=== PATIENT | female | born 1950 | race Caucasian/White ===

== ENCOUNTER → 2017-07-19 | Outpatient (CLI) | payer MEDICARE ==
--- NOTE | 2017-07-20 09:40 | MM ---
Reason for exam: screening (asymptomatic). Last mammogram was performed 1 year and 1 month ago. History: Patient is postmenopausal. Took estrogen for 1 year. Physical Findings: A clinical breast exam by your physician is recommended on an annual basis and results should be correlated with mammographic findings. MG 3D Screening Mammo W/Cad Bilateral CC and MLO view(s) were taken. Prior study comparison: June 08, 2016, bilateral MG 3d screening mammo w/cad. November 20, 2015, left breast MG 3d diag mammo w/cad LT. The breast tissue is heterogeneously dense. This may lower the sensitivity of mammography. There is no discrete abnormality. No significant changes when compared with prior studies. ASSESSMENT: Negative, BI-RAD 1 RECOMMENDATION: Routine screening mammogram of both breasts in 1 year.
== END | disposition home or self-care (01) ==
LOC: RADMAMWWP 12:56
PROVIDERS: ATTEND Family Medicine
DX: Z12.31 Encounter for screening mammogram for malignant neoplasm of breast (principal)
CPT/HCPCS: 77063; G0202

== ENCOUNTER → 2017-09-02 | Outpatient (CLI) | payer MEDICARE ==
[2017-09-02 16:22] LABS: Basophils # (A) 0.1 k/uL (0-0.2); Basophils % (A) 1 %; CH 31.9; CHCM 33.9; Eosinophils # (A) 0.2 k/uL (0-0.7); Eosinophils % (A) 3 %; HCT 45.1 % (34.0-46.0); HDW 2.35; HGB 14.8 gm/dL (11.4-16.0); Luc # (Auto) 0.21; Luc % (Auto) 3; Lymphocytes # (A) 2.1 k/uL (1.0-4.8); Lymphocytes % (A) 30 %; MCH 31.1 pg (25.0-35.0); MCHC 32.9 g/dL (31.0-37.0); MCV 94.4 fL (80.0-100.0); Mean Platelet Volume 7.3; Monocytes # (A) 0.4 k/uL (0-1.0); Monocytes % (A) 6 %; Neutrophils % (A) 57 %; RBC 4.77 m/uL (3.80-5.40); RDW 13.5 % (11.5-15.5); WBC (Perox) 7.33
[2017-09-02 16:38] LABS: ALT 38 U/L (9-52); AST 27 U/L (14-36); Alkaline Phosphatase 93 U/L (38-126); Anion Gap 10 mmol/L; Blood Urea Nitrogen 20 mg/dL (7-17); Calcium 10.1 mg/dL (8.4-10.2); Carbon Dioxide 26 mmol/L (22-30); Chloride 105 mmol/L (98-107); Glucose 88 mg/dL (74-99); Non-African American GFR(MDRD) 55 (>60 ml/min/1.73 sqM); Potassium 4.6 mmol/L (3.5-5.1); Sodium 141 mmol/L (137-145); Total Protein 7.6 g/dL (6.3-8.2)
[2017-09-03 01:15] LABS: Iron Saturation 24.07 (12.00-45.00); Iron(FE) 71 ug/dL (50-170); Total Iron Binding Capacity 295 ug/dL (228-460)
[2017-09-03 01:32] LABS: ANA w/Reflex to Titer NEGATIVE (NEGATIVE)
[2017-09-06 11:55] LABS: HCV Qualitative Result Not detected (Not detected)
== END | disposition home or self-care (01) ==
LOC: LABWHC1 15:47
PROVIDERS: ATTEND Internal Medicine Gastroenterology
DX: R79.89 Other specified abnormal findings of blood chemistry (principal)
CPT/HCPCS: 36415; 80053; 82103; 82390; 82728; 83516; 83540; 83550; 84165; 85025; 86038; 87340; 87522

== ENCOUNTER → 2018-03-21 | Outpatient (CLI) | payer MEDICARE ==
[2018-03-21 10:45] LABS: Calcium 9.9 mg/dL (8.4-10.2); Potassium 4.7 mmol/L (3.5-5.1); Total Bilirubin 1.2 mg/dL (0.2-1.3); Total Protein 6.7 g/dL (6.3-8.2)
== END ==
LOC: LABWHC1 09:45
PROVIDERS: ATTEND Internal Medicine Gastroenterology
DX: K76.0 Fatty (change of) liver, not elsewhere classified (principal)
CPT/HCPCS: 36415; 80053

== ENCOUNTER → 2018-09-15 | Outpatient (CLI) | payer MEDICARE ==
--- NOTE | 2018-09-19 08:42 | MM ---
Reason for exam: screening (asymptomatic). Last mammogram was performed 1 year and 2 months ago. History: Patient is postmenopausal. Took estrogen for 1 year. Physical Findings: A clinical breast exam by your physician is recommended on an annual basis and results should be correlated with mammographic findings. MG 3D Screening Mammo W/Cad Bilateral CC and MLO view(s) were taken. Prior study comparison: July 19, 2017, bilateral MG 3d screening mammo w/cad. June 08, 2016, bilateral MG 3d screening mammo w/cad. There are scattered fibroglandular densities. No suspicious abnormality on the left breast. Right medial asymmetry 9.3cm from nipple 3D CC 26/50. ASSESSMENT: Incomplete: need additional imaging evaluation, BI-RAD 0 RECOMMENDATION: Special view mammogram of the right breast. If lesion persists on supplemental views, image directed ultrasound is recommended. [facility] will attempt to contact patient to return for supplemental views and ultrasound if indicated.
== END | disposition home or self-care (01) ==
LOC: RADMAMWWP 12:22
PROVIDERS: ATTEND Family Medicine
DX: Z12.31 Encounter for screening mammogram for malignant neoplasm of breast (principal)
CPT/HCPCS: 77063; 77067

== ENCOUNTER → 2018-09-21 | Outpatient (CLI) | payer MEDICARE ==
--- NOTE | 2018-09-22 07:17 | MM ---
Reason for exam: additional evaluation requested from abnormal screening. Last mammogram was performed less than 1 month ago. History: Patient is postmenopausal. Took estrogen for 1 year. Physical Findings: Nurse did not find any significant physical abnormalities on exam. MG 3D Work Up W/Cad RT Spot compression CC and LM view(s) were taken of the right breast. Prior study comparison: September 15, 2018, bilateral MG 3d screening mammo w/cad. July 19, 2017, bilateral MG 3d screening mammo w/cad. There are scattered fibroglandular densities. There is no discrete abnormality. These results were verbally communicated with the patient and result sheet given to the patient on 09/21/18. ASSESSMENT: Probably benign, BI-RAD 3 RECOMMENDATION: Follow-up diagnostic mammogram of the right breast in 6 months.
== END | disposition home or self-care (01) ==
LOC: RADMAMWWP 14:48
PROVIDERS: ATTEND Family Medicine
DX: R92.8 Other abnormal and inconclusive findings on diagnostic imaging of breast (principal)
CPT/HCPCS: 77065; G0279; 77061

== ENCOUNTER → 2019-05-03 | Outpatient (CLI) | payer MEDICARE ==
--- NOTE | 2019-05-03 13:11 | MM ---
Reason for exam: follow-up at short interval from prior study. Last mammogram was performed 7 months ago. History: Patient is postmenopausal. Took estrogen for 1 year. Physical Findings: Nurse did not find any significant physical abnormalities on exam. MG 3D Diag Mammo W/Cad RT CC and MLO view(s) were taken of the right breast. Prior study comparison: September 21, 2018, right breast MG 3d work up w/cad RT. September 15, 2018, bilateral MG 3d screening mammo w/cad. The breast tissue is heterogeneously dense. This may lower the sensitivity of mammography. Persistent medial CC distortion without MLO correlate. These results were verbally communicated with the patient and result sheet given to the patient on 05/03/19. ASSESSMENT: Incomplete: need additional imaging evaluation, BI-RAD 0 RECOMMENDATION: Ultrasound of the right breast. (medial, attention 9cm from the nipple)
--- NOTE | 2019-05-03 13:14 | USB ---
Reason for exam: additional evaluation requested from abnormal screening. History: Patient is postmenopausal. Took estrogen for 1 year. US Breast Limited RT Right limited breast ultrasound including focal area of concern, retroareolar and axilla demonstrates no cystic or solid lesion seen. No suspicious finding. These results were verbally communicated with the patient and result sheet given to the patient on 05/03/19. ASSESSMENT: Probably benign, BI-RAD 3 RECOMMENDATION: Follow-up diagnostic mammogram of both breasts in 6 months.
== END | disposition home or self-care (01) ==
LOC: RADMAMWWP 10:42
PROVIDERS: ATTEND Family Medicine
DX: R92.8 Other abnormal and inconclusive findings on diagnostic imaging of breast (principal)
CPT/HCPCS: 77065; 76642; G0279; 77061

== ENCOUNTER → 2019-11-24 | Outpatient (CLI) | payer MEDICARE ==
--- NOTE | 2019-11-27 07:22 | MM ---
Reason for exam: additional evaluation requested from prior study. Last mammogram was performed 7 months ago. History: Patient is postmenopausal. Took estrogen for 1 year. Physical Findings: Nurse did not find any significant physical abnormalities on exam. MG 3D Diag Mammo W/Cad KURT Bilateral CC and MLO view(s) were taken. Prior study comparison: May 03, 2019, right breast MG 3d diag mammo w/cad RT. September 21, 2018, right breast MG 3d work up w/cad RT. The breast tissue is heterogeneously dense. This may lower the sensitivity of mammography. There is no discrete abnormality. No significant new findings when compared with previous films. These results were verbally communicated with the patient and result sheet given to the patient on 11/24/19. ASSESSMENT: Benign, BI-RAD 2 RECOMMENDATION: Routine screening mammogram of both breasts in 1 year.
== END | disposition home or self-care (01) ==
LOC: RADMAMWWP 15:03
PROVIDERS: ATTEND Family Medicine
DX: R92.2 Inconclusive mammogram (principal)
CPT/HCPCS: 77066; G0279; 77062

== ENCOUNTER → 2021-01-15 | Outpatient (CLI) | payer MEDICARE ==
--- NOTE | 2021-01-16 12:14 | MM ---
Reason for exam: screening (asymptomatic). Last mammogram was performed 1 year and 2 months ago. History: Patient is postmenopausal. Took estrogen for 1 year. Physical Findings: A clinical breast exam by your physician is recommended on an annual basis and results should be correlated with mammographic findings. MG 3D Screening Mammo W/Cad Bilateral CC and MLO view(s) were taken. Prior study comparison: November 24, 2019, bilateral MG 3d diag mammo w/cad KURT. May 03, 2019, right breast MG 3d diag mammo w/cad RT. The breast tissue is heterogeneously dense. This may lower the sensitivity of mammography. There is no discrete abnormality. No significant changes when compared with prior studies. ASSESSMENT: Negative, BI-RAD 1 RECOMMENDATION: Routine screening mammogram of both breasts in 1 year.
== END | disposition home or self-care (01) ==
LOC: RADMAMWWP 10:17
PROVIDERS: ATTEND Family Medicine
DX: Z12.31 Encounter for screening mammogram for malignant neoplasm of breast (principal)
CPT/HCPCS: 77063; 77067

== ENCOUNTER → 2022-06-10 | Outpatient (CLI) | payer MEDICARE ==
--- NOTE | 2022-06-10 15:15 | BD ---
EXAMINATION TYPE: Axial Bone Density DATE OF EXAM: 06/10/2022 COMPARISON: NONE CLINICAL HISTORY: 71 years year old Female. ICD-10 CODE: Z12.31 SCREENING MAMMO Height: 5 FT 1 IN Weight: 167 FRAX RISK QUESTIONS: Alcohol (3 or more units per day): NO Family History (Parent hip fracture): NO Glucocorticoids (More than 3mos): NO (Ex: prednisone, prednisolone, methylprednisolone, dexamethasone, and hydrocortisone). History of Fracture in Adulthood: YES Secondary Osteoporosis: 1. Type 1 Diabetes: NO 2. Hyperthyroidism: NO 3. Menopause before 45: NO 4. Malnutrition: NO 5. Chronic liver disease: NO Rheumatoid Arthritis: NO Current Tobacco Use: NO RISK FACTORS HISTORY OF: Surgery to Spine/Hip(right/left)/Wrist (right/left): NO Family History of Osteoporosis: NO Active: YES Diet low in dairy products/other sources of calcium: NO Postmenopausal woman: YES Take estrogen and/or progesterone medications: BRIEFLY Lost more than 2 inches in height since high school: YES Frequent falls: NO Poor Health: GOOD Hyperparathyroidism: NO Adrenal Insufficiency: NO MEDICATIONS: Thyroid Medications: YES Which medication: SYNTHROID How Lon YEARS Additional Medications: SYNTHROID, ATORVASTATIN,HYZAR,MOBIC ,BABY ASPIRIN,NORVASC Additional History: EXAM MEASUREMENTS: Bone mineral densitometry was performed using the [employer] System. Bone mineral density as measured about the Lumbar spine is: ----- L1-L4(G/cm2): 1.160 T Score Values are as follows: ----- L1: 0.1 ----- L2: -0.6 ----- L3: 0.3 ----- L4: -0.7 ----- L1-L4: -0.2 BASELINE Bone mineral density about the R hip (g/cm2): 0.752 Bone mineral density about the L hip (g/cm2): 0.828 T Score values are as follows: -----R Neck: -2.1 -----L Neck: -1.5 -----R Total: -2.1 -----L Total: -1.2 BASELINE FRAX%s: The graph provided illustrates a 18.9 % chance for a major osteoporotic fx and a 3.9 % chance for the hips probability for fx in 10 years time. IMPRESSION: Osteopenia (T Score between -2.5 and -1). There is slightly increased risk of fracture and the patient may be considered for treatment. Re-Screen 2-5 years. NOTE: T-SCORE=SD OF THE YOUNG ADULT MEAN.
--- NOTE | 2022-06-11 08:00 | MM ---
Reason for Exam: Screening (asymptomatic). Last mammogram was performed 1 year(s) and 5 month(s) ago. Patient History: Menarche at age 12. First Full-Term at age 19. Left ovary removed at age 52. Right ovary removed at age 52. Hysterectomy at age 52. Postmenopausal. Patient used Estrogen for 1 year. Risk Values: Mackenzie 5 year model risk: 1.3%. NCI Lifetime model risk: 3.5%. Prior Study Comparison: 05/03/2019 Right Diagnostic Mammogram, [facility]. 11/24/2019 Bilateral Diagnostic Mammogram, [facility]. 01/15/2021 Bilateral Screening Mammogram, [facility]. Tissue Density: There are scattered fibroglandular densities. Findings: Analyzed By CAD. There is no suspicious group of microcalcifications or new suspicious mass in either breast. Overall Assessment: Benign, BI-RAD 2 Management: Screening Mammogram of both breasts in 1 year. A clinical breast exam by your physician is recommended on an annual basis and results should be correlated with mammographic findings. Electronically signed and approved by: Nino Owens M.D. Radiologis
== END | disposition home or self-care (01) ==
LOC: RADBDWWP 10:19
PROVIDERS: ATTEND Family Medicine
DX: Z12.31 Encounter for screening mammogram for malignant neoplasm of breast (principal); Z78.0 Asymptomatic menopausal state; M85.89 Other specified disorders of bone density and structure, multiple sites
CPT/HCPCS: 77063; 77067; 77080

== ENCOUNTER → 2023-08-16 | Outpatient (CLI) | payer MEDICARE ==
--- NOTE | 2023-08-16 13:29 | MM ---
Reason for Exam: Screening (asymptomatic). Last mammogram was performed 1 year(s) and 2 month(s) ago. Patient History: Menarche at age 12. First Full-Term at age 19. Left ovary removed at age 52. Right ovary removed at age 52. Hysterectomy at age 52. Postmenopausal. Patient used Estrogen for 1 year. Risk Values: Mackenzie 5 year model risk: 1.3%. NCI Lifetime model risk: 3.3%. Prior Study Comparison: 11/24/2019 Bilateral Diagnostic Mammogram, [facility]. 01/15/2021 Bilateral Screening Mammogram, [facility]. 06/10/2022 Bilateral MG 3D screening mammo w/cad, [facility]. Tissue Density: There are scattered fibroglandular densities. Findings: Analyzed By CAD. There is no suspicious group of microcalcifications or new suspicious mass. Overall Assessment: Negative, BI-RAD 1 Management: Screening Mammogram of both breasts in [address] [facility] will attempt to contact patient to return for supplemental views and ultrasound if indicated. Patient should continue monthly self-breast exams. A clinical breast exam by your physician is recommended on an annual basis. This exam should not preclude additional follow-up of suspicious palpable abnormalities. Note on Mackenzie scores and lifetime risk: 1. A Mackenzie score greater than 3% is considered moderate risk. If this is the case, consider specialist referral to assess eligibility for a risk reducing agent. 2. If overall lifetime risk for the development of breast cancer is 20% or higher, the patient may qualify for future screening with alternating mammogram and breast MRI. Electronically signed and approved by: Zion Perales DO
== END | disposition home or self-care (01) ==
LOC: RADMAMWWP 10:54
PROVIDERS: ATTEND Family Medicine
DX: Z12.31 Encounter for screening mammogram for malignant neoplasm of breast (principal); Z78.0 Asymptomatic menopausal state
CPT/HCPCS: 77063; 77067

== ENCOUNTER → 2024-02-14 | Outpatient (CLI) | payer MEDICARE ==
--- NOTE | 2024-02-15 12:00 | CT ---
EXAMINATION TYPE: CT right knee - MANUEL Protocol CT DLP: 817 mGycm, Automated exposure control for dose reduction was used. DATE OF EXAM: 02/14/2024 11:46 AM COMPARISON: . None CLINICAL INDICATION:Female, 73 [place] [id number]; PHH, knee pain, osteoarthritis, MANUEL knee. TECHNIQUE: Axial images were obtained of the CT right knee - MANUEL Protocol, Additional coronal and sa gittal reformatted images and soft tissue and bone window were obtained for review. 3-D reconstructio n was created on a separate workstation. Contrast used: mL of , (None if empty) Oral contrast used: (None if empty) FINDINGS: There is no evidence of fracture, subluxation, or dislocation. No significant soft tissue swelling or joint effusion is identified. No focal muscular atrophy or edema is identified. No radiop aque foreign body identified. IMPRESSION: No evidence of fracture.
== END | disposition home or self-care (01) ==
LOC: RADCTMAIN 10:21
PROVIDERS: ATTEND Orthopaedic Surgery
DX: M17.12 Unilateral primary osteoarthritis, left knee (principal); M17.11 Unilateral primary osteoarthritis, right knee; M21.061 Valgus deformity, not elsewhere classified, right knee; M21.162 Varus deformity, not elsewhere classified, left knee; M25.561 Pain in right knee

== ENCOUNTER → 2024-02-14 | Outpatient (CLI) | payer MEDICARE ==
[2024-02-14 11:02] LABS: INR 0.9 (<1.2); Prothrombin Time 10.3 sec (10.0-12.5)
[2024-02-14 16:07] LABS: HCT 44.2 % (37.2-46.3); HGB 15.3 g/dL (12.0-15.0); MCH 31.2 pg (27.0-32.0); MCHC 34.6 g/dL (32.0-37.0); Mean Platelet Volume 9.6 FL (9.5-12.2); NRBC Per 100 WBC 0 X 10*3/uL (0.00-0.01); Platelet Count 372 X 10*3/uL (140-440); RBC 4.91 X 10*6/uL (4.10-5.20); RDW 12.6 % (11.5-14.5); WBC 7.45 X 10*3/uL (4.50-10.00)
[2024-02-14 16:09] LABS: ALT 18 U/L (8-44); AST 25 U/L (13-35); Albumin 4.6 g/dL (3.8-4.9); Albumin/Globulin Ratio 1.59 Ratio (1.60-3.17); Alkaline Phosphatase 81 U/L (41-126); BUN/Creat Ratio 13.18 Ratio (12.00-20.00); Blood Urea Nitrogen 14.5 mg/dL (9.0-27.0); Calcium 10.1 mg/dL (8.7-10.3); Carbon Dioxide 23.6 mmol/L (21.6-31.8); Chloride 99 mmol/L (96-109); Globulin 2.9 g/dL (1.6-3.3); Glucose 99 mg/dL (70-110); Sodium 135 mmol/L (135-145); Total Bilirubin 1.4 mg/dL (0.3-1.2); Total Protein 7.5 g/dL (6.2-8.2)
== END | disposition home or self-care (01) ==
LOC: LABPAT 09:55
PROVIDERS: ATTEND Orthopaedic Surgery
DX: Z01.812 Encounter for preprocedural laboratory examination (principal); Z22.322 Carrier or suspected carrier of Methicillin resistant Staphylococcus aureus; M17.11 Unilateral primary osteoarthritis, right knee
CPT/HCPCS: 36415; 80053; 83036; 85027; 85610; 85730; 93005

== ENCOUNTER → 2024-03-02 | Outpatient (CLI) | payer MEDICARE | END | disposition home or self-care (01) | LOC: LABPAT 11:08 | PROVIDERS: ATTEND Orthopaedic Surgery | DX: Z01.812 Encounter for preprocedural laboratory examination (principal); M17.11 Unilateral primary osteoarthritis, right knee; Z22.322 Carrier or suspected carrier of Methicillin resistant Staphylococcus aureus | CPT/HCPCS: 87070 ==

== ENCOUNTER 2024-03-10 05:38 | Day surgery (SDC) | payer MEDICARE ==
[2024-03-10] MEDS ORDERED: TRANEXAMIC 1,000 MG/100ML-NACL 1,000 MG in SALINE 1 100ML.BAG IVPB PRN (06:00)
[2024-03-10] MEDS: ACETAMINOPHEN TAB 500 MG TAB PO PRN (06:42)
[2024-03-10] MEDS: oxyCODONE ER 10 MG TAB.ER.12H PO PRN (06:42)
[2024-03-10] MEDS: DOCUSATE 100 MG CAP PO PRN (06:42)
[2024-03-10] MEDS: FAMOTIDINE 20 MG/2 ML VIAL IVP PRN (06:44)
[2024-03-10] MEDS: DEXAMETHASONE SOD PHOSPHATE 10 MG/ML 1 ML VIAL IV PRN (06:45)
[2024-03-10] MEDS: ONDANSETRON 4 MG/2 ML VIAL IVP PRN (06:46)
[2024-03-10] MEDS: KETOROLAC 15 MG/ML 1 ML VIAL IVP PRN (06:46)
[2024-03-10] MEDS: LACTATED RINGERS 1,000 ML IV ONE (06:52)
[2024-03-10] MEDS: MIDAZOLAM 2 MG/2 ML VIAL IVP ONE (07:01)
[2024-03-10] MEDS: TRANEXAMIC 1,000 MG/100ML-NACL 1,000 MG in SALINE 1 100ML.BAG IV PRN (07:41)
[2024-03-10] MEDS ORDERED: HYDROmorphone 0.5 MG/0.5 ML SYRINGE IVP PRN ×3 (07:57)
[2024-03-10] MEDS ORDERED: bisacodyL 10 MG SUPP RECTAL PRN (07:57)
[2024-03-10] MEDS ORDERED: traMADol 50 MG TAB PO PRN (07:57)
[2024-03-10] MEDS ORDERED: NA PHOS,M-B/NA PHOS,DI-BA 133 ML ENEMA RECTAL PRN (07:57)
[2024-03-10] MEDS ORDERED: MAGNESIUM HYDROXIDE 2,400 MG/30 ML CUP PO PRN (07:57)
[2024-03-10] MEDS ORDERED: ACETAMINOPHEN TAB 325 MG TAB PO PRN (07:57)
[2024-03-10] MEDS ORDERED: NALOXONE 0.4 MG/ML 1 ML VIAL IV PRN (07:57)
--- NOTE | 2024-03-10 07:57 | P.ANPRN ---
Procedure Note - Anesthesia - Nerve Block Performed Right [place] Single Time Out Performed: Yes Date of Procedure: 03/10/24 Procedure Start Time: 07:01 Procedure Stop Time: 07:05 Location of Patient: PreOp Indication: Acute Post-Operative Pain, Analgesia, Requested by Surgeon Sedation Type: Sedate with meaningful contact maintained Preparation: Sterile Prep Position: Left Lateral Catheter: None Needle Types: Pajunk Needle Gauge: 21 Ultrasound used to visualize needle placement: Yes Ultrasound used to observe medication spread: Yes Injectate: 0.5% Ropivacaine (see comment for volume) (Ropiv 25ml + decadron 4mg) Blood Aspirated: No Pain Paresthesia on Injection Noted: No Resistance on Injection: Normal Image Stored and Saved: Yes Events: Uneventful and Well Tolerated
--- NOTE | 2024-03-10 07:59 | P.ANPRN ---
Procedure Note - Anesthesia - Nerve Block Performed Right Adductor Canal Single Time Out Performed: Yes Date of Procedure: 03/10/24 Procedure Start Time: 07:06 Procedure Stop Time: 07:11 Location of Patient: PreOp Indication: Acute Post-Operative Pain, Analgesia, Requested by Surgeon Sedation Type: Sedate with meaningful contact maintained Preparation: Sterile Prep Position: Supine Needle Types: Pajunk Needle Gauge: 21 Ultrasound used to visualize needle placement: Yes Ultrasound used to observe medication spread: Yes Injectate: 0.5% Ropivacaine (see comment for volume) (Ropiv 20ml + decadron 4mg) Blood Aspirated: No Pain Paresthesia on Injection Noted: No Resistance on Injection: Normal Image Stored and Saved: Yes Events: Uneventful and Well Tolerated
[2024-03-10] MEDS ORDERED: HYDROcodone/APAP 7.5-325MG 1 EACH TAB PO PRN (08:00)
[2024-03-10] MEDS: ROPIVACAINE/EPI/CLONIDINE/KET 50 ML SYRINGE MISCELLANE PRN (08:20)
[2024-03-10] MEDS: LACTATED RINGERS 1,000 ML IV SCH (08:45)
--- NOTE | 2024-03-10 10:03 | P.OP ---
Date of Procedure: 03/10/24 Preoperative Diagnosis: severe right knee arthritis, valgus deformity Postoperative Diagnosis: same Procedure(s) Performed: 1. Right total knee arthroplasty 2. Computer assisted musculoskeletal navigation using CT/MRI images Implants: 1. [place] Triathlon CR Femur Size #3 2. [place] Triathlon [place] Tibial Base Size #2 with 12x50 tibial stem 3. Zach Triathlon CS poly Size #11 4. Zach Triathlon all poly patella, Size #29 Anesthesia: MARLEY, regional Surgeon: Joe Pedersen Fire Equipment Repairer Inspector #1: Emeka Gonzalez Estimated Blood Loss (ml): 100 IV fluids (ml): 1,000 Pathology: none sent Condition: stable Disposition: PACU Indications for Procedure: I met with the patient preoperatively in the office setting and discussed treatment of their symptomatic knee arthritis. They failed a long course of nonsurgical treatment and elected to proceed with an elective total knee replacement. I discussed the potential risks and complications at length and gave them ample time to ask questions. Risks discussed included: risks from anesthesia, superficial site surgical infection, acute and/or chronic periprosthetic joint infection, delayed wound healing, drainage, wound necrosis, instability, stiffness, stiffness requiring manipulation and/or revision surgery, damage to local blood vessels or nerves, aseptic loosening of the implants, extensor mechanism issues including disruption, patellar maltracking, avascular necrosis etc., continued or worsened knee pain, generalized dissatisfaction with surgical outcome, need for revision surgery, an inability to regain preinjury level of function, DVT, PE, other medical complications, and possibly loss of life or limb. The patient voiced their understanding that while these are the most common complications other less common complications are possible. They provided both their verbal and written consent to go forward with surgery. Operative Findings: upon making the arthrotomy there were severe arthritic changes in all 3 compartments of the knee. After registering the knee with the Grovo robot the patient's pre-existing deformity and extension was 3 of valgus. Her deformity was passively correctable without any soft tissue release to 1-degree of valgus. Using implant manipulation and the goal robotic software the implants were optimally positioned to balance the knee. With the trial implants in the pa tient had full extension and 1.5 of valgus without any lateral release. Description of Procedure: The patient was identified in preoperative holding and the correct operative extremity was verified and marked with a marker. I reviewed the consent form with the patient at length. All of their questions were answered. The patient was given a block by anesthesia. They were then brought back to the operating room. They were transferred onto the operating room table where a general anesthetic, preoperative antibiotics, and tranexamic acid were administered by anesthesia. A tourniquet was applied to the proximal aspect of the operative extremity. The contralateral extremity was padded under the heel and secured to the operating room table with a nonsterile blue towel and tape. The ipsilateral arm was carefully draped across the patient's chest and secured with a pillow and foam. A post was applied over the lateral aspect of the ipsilateral thigh and a bolster was placed under the ipsilateral foot. I verified that the operative extremity was stable and the knee was flexed to 90. The operative extremity was then placed in a leg rivera, nonsterile drapes were applied, and the extremity was prepped and draped sterilely in the standard sterile fashion. Prior to starting surgery timeout was performed identifying the correct patient, operative extremity, and procedure. The leg was then elevated, exsanguinated with an Esmarch bandage, and the tourniquet was inflated. An anterior midline incision was made sharply with a scalpel. Once I had dissec mariama deep to the superficial fascial layer medial and lateral flaps were elevated. A medial parapatellar arthrotomy was created. Upon opening the knee joint there were diffuse arthritic changes in all 3 compartments. The anterior horn of the medial meniscus were sharply released and a medial release was performed around the posterior medial corner of the knee to facilitate retractor placement. The fat pad was excised with electrocautery. The patella was found to be severely arthritic and a provisional cut was made with a sagittal saw to facilitate mobilization of the extensor mechanism during the procedure. Remnants of the ACL and PCL were then excised from the notch. 4 mm pins were then placed within the incision in the medial distal femur and proximal tibia. Arrays were applied to the pins and I verified they were completely tightened. The knee was then registered with the Grovo robot and manipulations in implant position were made to balance the knee and opitmize implant position. Using the Grovo robotic saw all cuts were made in accordance with our plan. After all bony fragments had been removed the cuts were verified with the planar probe. The tibia was then subluxed forward and sized. The knee was brought into flexion and a lamina package winder was placed to allow removal of the meniscal remnants both medially and laterally as well as posterior osteophytes. Local anesthetic was then infiltrated around the joint capsule. Trial implants were then placed within the knee. Range of motion and collateral ligament tension was then evaluated. Adjustments in implant size and position were then made accordingly. Once the knee was felt to be appropriately balanced the Charles pins were removed. The patella was then recut, sized, and punched. A trial patellar button was then placed. With the trial components in place, the patella tracked midline. The femur was then drilled and the trial component removed. The trial tibial component was then appropriately rotated, pinned, and prepared for the keel. All trial components were then removed from the knee. The knee was thoroughly irrigated with pulsatile lavage. Cement was prepared via vacuum mixing in a bowl on the back table. I then hand pressurized cement into the femur and tibia and placed the implants beginning with the tibial base tray and poly liner, femoral component, and finally the patellar button. All extruded cement was removed including from the pin sites. Once the cement had hardened the knee was evaluated one final time with the final polyethylene liner in place. The knee had full extension and flexion and felt stable to varus and valgus stress throughout the arc of motion. The tourniquet was released and with the tourniquet down the patella tracked midline. All bleeders were controlled with electrocautery. The knee was then soaked for 3 minutes with a dilute Betadine soak. The knee was thoroughly irrigated using 3 L of sterile saline and pulsatile lavage. The extensor mechanism was then reapproximated using pop off Vicryl sutures followed by a running barbed suture. The knee was then closed in layers with a 0 strata fix for the deep fascial layer, 2-0 strata fix for the superficial subcutaneous layer and Monocryl and Steri-Strips for the skin. A sterile dressing was applied. I verified that all instrument, sponge, and sharp counts were correct. The patient was then transferred off the operating room table, extubated, and brought to recovery having tolerated the procedure well. Emeka Gonzalez PA-C was required as a skilled periodicals library assistant due to the complexity of the surgery for patient positioning, draping, retraction, closure and application of dressing. PLAN: The patient can weight-bear as tolerated on the operative extremity. DVT prophylaxis with aspirin 81 mg twice a day based on preoperative risk stratification. Internal medicine for perioperative medical management. 2 doses of post-operative antibiotics. Physical therapy for gait training. Follow-up in the office in 2 weeks for wound check and x-rays of the knee including an AP and lateral.
--- NOTE | 2024-03-10 11:25 | XR ---
EXAMINATION TYPE: XR knee limited RT DATE OF EXAM: 03/10/2024 COMPARISON: NONE TECHNIQUE: Two views submitted HISTORY: Post op FINDINGS: There is a prosthetic knee in near anatomic alignment. There is soft tissue edema and soft tissue e mphysema. Small cyst versus IMPRESSION: 1. Postoperative change. Appears in near-anatomic alignment
[2024-03-10] MEDS: CALCIUM CARBONATE 500 MG CHEWABLE PO PRN (16:39)
[2024-03-10] MEDS: SENNOSIDES-DOCUSATE SODIUM 1 EACH TAB PO SCH (20:19)
[2024-03-10] MEDS: ASPIRIN 81 MG PO SCH (20:20)
[2024-03-10] MEDS: ATORVASTATIN 40 MG TAB PO SCH (20:20)
[2024-03-10] MEDS: amLODIPine 10 MG TAB PO SCH (20:20)
[2024-03-10] MEDS: CHLORHEXIDINE GLUCONATE 15 ML CUP MUCOUS MEM PRN (20:58)
--- NOTE | 2024-03-10 23:07 | P.CONS ---
History of Present Illness - Reason for Consult Consult date: 03/10/24 Medical management - Chief Complaint Right total knee arthroplasty - History of Present Illness Patient is a 73-year-old female with a past medical history of hypertension, hypothyroidism, hyperlipidemia, asthma, GERD and osteoarthritis was admitted to hospital for elective right total knee arthroplasty. The patient is status post right total knee arthroplasty, computer-assisted musculoskeletal navigation using CT/MRI images. Patient is transferred to medical floor. Currently still drowsy. Complains of nausea. No episodes of vomiting. No fever no chills. Denies any chest pain or shortness of breath. No cough or sputum production. No headache or dizziness. Laboratory data is not available currently. Blood pressure is 108/53 pulse 61 respiration 17 pulse ox 90% on 2 L oxygen via nasal cannula. Medicine service was consulted for medical management. Review of Systems Constitutional: Patient denies any fever or chills . No generalized weakness or weight loss. Abdomen: Patient complains of nausea. No episodes of vomiting. No diarrhea or abdominal pain. Cardiovascular: Patient denies any chest pain or short of breath no palpitations. Respiratory: patient denied any cough is from production. No shortness of breath Neurologic: Patient denied any numbness or tingling headache. Musculoskeletal: Patient denies any complaints of joint swelling or deformity. Skin: Negative Psychiatric: Negative Endocrine: No heat or cold intolerance. No recent weight gain. Genitourinary: No dysuria or hematuria. All other 14 point ROS negative except the above Past Medical History Past Medical History: Asthma, GERD/Reflux, Hyperlipidemia, Hypertension, Osteoarthritis (OA), Thyroid Disorder Additional Past Medical History / Comment(s): swelling right ankle, osteoporosis History of Any Multi-Drug Resistant Organisms: None Reported Past Surgical History: Hysterectomy, Tonsillectomy Additional Past Surgical History / Comment(s): cystocele/rectocele repair Past Anesthesia/Blood Transfusion Reactions: Previous Problems w/ Anesthesia, Postoperative Nausea & Vomiting (PONV) Additional Past Anesthesia/Blood Transfusion Reaction / Comm: woke up during hyst Past Psychological History: No Psychological Hx Reported Smoking Status: Never smoker Past Alcohol Use History: Occasional Past Drug Use History: None Reported - Past Family History Father Family Medical History: Vascular Disorder Medications and Allergies Home Medications Medication Instructions Recorded Confirmed Type Albuterol Inhaler [Ventolin Hfa 1 - 2 puff INHALATION Q6H PRN 03/07/24 03/07/24 History Inhaler] Alendronate Sodium [Fosamax] 70 mg PO APARICIO 03/07/24 03/07/24 History Ascorbic Acid [Vitamin C] 500 mg PO DAILY 03/07/24 03/07/24 History Aspirin 81 mg PO DAILY 03/07/24 03/07/24 History Atorvastatin [Lipitor] 40 mg PO HS 03/07/24 03/07/24 History Cholecalciferol [Vitamin D3 (25 25 mcg PO DAILY 03/07/24 03/07/24 History Mcg = 1000 Iu)] Fish Oil/Dha/Epa [Fish Oil 1,200 1 each PO DAILY 03/07/24 03/07/24 History mg Fish Oil] Furosemide [Lasix] 20 mg PO DAILY PRN 03/07/24 03/07/24 History Levothyroxine Sodium [Synthroid] 88 mcg PO DAILY 03/07/24 03/07/24 History Losartan/Hydrochlorothiazide 1 tab PO DAILY 03/07/24 03/07/24 History [Losartan-Hctz 100-25 mg Tab] Magnesium 200 mg PO DAILY 03/07/24 03/07/24 History Meloxicam [Mobic] 15 mg PO DAILY 03/07/24 03/07/24 History Omeprazole [PriLOSEC] 20 mg PO AC-BRKFST 03/07/24 03/07/24 History Potassium(Unknown Dose) 1 tab PO DAILY PRN 03/07/24 03/07/24 History amLODIPine [Norvasc] 10 mg PO HS 03/07/24 03/07/24 History Aspirin 81 mg PO BID #60 tab 03/10/24 Rx Diclofenac Sodium [Voltaren] 75 mg PO BID #60 tab 03/10/24 Rx Docusate [Colace] 100 mg PO BID #28 capsule 03/10/24 Rx HYDROcodone/APAP 5-325MG [[place] 1 - 2 tab PO Q6HR PRN #32 tab 03/10/24 Rx 5-325] Omeprazole 40 mg PO DAILY #30 cap 03/10/24 Rx Allergies Allergy/AdvReac Type Severity Reaction Status Date / Time No Known Allergies Allergy Verified 03/10/24 06:13 Physical Exam Vitals: Vital Signs Temp Pulse Resp BP BP Pulse Ox 03/10/24 11:25 97.6 F 87 17 116/66 91 L 03/10/24 10:45 62 16 130/60 93 L 03/10/24 10:30 90 16 128/58 94 L 03/10/24 10:15 93 16 126/62 94 L 03/10/24 10:02 97.2 F L 93 16 128/58 98 03/10/24 07:06 88 16 137/65 98 03/10/24 06:29 98.7 F 106 H 16 160/83 96 Intake and Output 03/09/24 03/10/24 03/10/24 22:59 06:59 14:59 Intake Total 300 1550 Output Total 100 Balance 300 1450 Intake: IV 300 1550 Output: Estimated Blood Loss 100 Other: Weight 77.9 kg 77.9 kg PHYSICAL EXAMINATION: Patient is lying in the bed comfortably, no acute distress, awake alert and oriented.. HEENT: Normocephalic. Neck is supple. Pupils reactive. Nostrils clear. Oral cavity is moist. Neck reveals no JVD, carotid bruits, or thyromegaly. CHEST EXAMINATION: Trachea is central. Symmetrical expansion. Bibasilar diminished sounds otherwise lung vazquez clear to auscultation and percussion. CARDIAC: Normal S1, S2 with no gallops. No murmurs ABDOMEN: Soft. Bowel sounds normal. No organomegaly. No abdominal bruits. Extremities: reveal no edema. No clubbing or cyanosis Neurologically awake, alert, oriented x3 with well-coordinated movements. No focal deficits noted Skin: No rash or skin lesions. Psychiatric: Coperative. Nonsuicidal Musculoskeletal: No joint swelling or deformity. Right knee surgical site is bandaged. Assessment and Plan Assessment: Status post right total knee arthroplasty postoperative day 0 Hypertension currently blood pressure is not elevated. Hypothyroidism Osteoarthritis GERD Asthma not on exacerbation Hyperlipidemia Osteoarthritis DVT prophylaxis patient is on aspirin 81 mg twice daily Plan: Patient will be continued on pain management, bowel regimen and encourage incentive spirometry. Patient is on IV hydration with Ringer's lactate at 100 cc at this time. Monitor fluid status closely. Patient is on Norvasc, Lasix and losartan/hydrochlorothiazide at home. Continue with Norvasc and restart her medications as needed. Continue with other home medications as appropriate. Follow-up CBC and BMP tomorrow. Will continue to follow and further recommendations based on clinical course. Thank you kindly for your consult.
[2024-03-11] MEDS: HYDROcodone/APAP 7.5-325MG 1 EACH TAB PO PRN (00:54)
[2024-03-11] MEDS: ONDANSETRON 4 MG/2 ML VIAL IVP PRN (04:49)
[2024-03-11] MEDS: PANTOPRAZOLE 40 MG TABLET PO SCH (06:09)
[2024-03-11] MEDS: LEVOTHYROXINE 88 MCG TAB PO SCH (06:09)
--- NOTE | 2024-03-11 08:35 | P.DS ---
Providers Date of admission: 03/10/2024 Attending physician: Joe Pedersen Consults: 03/10/24 07:57 Consult Physician Routine Consulting Provider: Savana Bui Consult Reason/Comments: post op medical management Do you want consulting provider notified?: Yes Primary care physician: Stated None Hospital Course: The patient is very pleasant 72-year-old female who underwent an uncomplicated right total knee replacement yesterday. Following surgery she was transferred to the orthopedic floor. She received 2 doses postoperative antibiotics. She was transitioned from IV to oral pain medication. She was seen and evaluated by internal medicine. She was started on aspirin for DVT prophylaxis. She worked with physical therapy on postoperative day #1 and did well. I saw the patient p ostoperative day #1 and she was doing well. Her pain was well-controlled. The dressing over her knee was intact. There is mild swelling. Femoral nerve function was intact. She was able to actively dorsiflex and plantarflex her ankles and her toes. She was ultimately cleared for discharge home. Plan - Discharge Summary Discharge Rx Participant: No New Discharge Prescriptions: New Docusate [Colace] 100 mg PO BID #28 capsule Diclofenac Sodium [Voltaren] 75 mg PO BID #60 tab HYDROcodone/APAP 5-325MG [[place] 5-325] 1 - 2 tab PO Q6HR PRN #32 tab PRN Reason: Pain Aspirin 81 mg PO BID #60 tab Omeprazole 40 mg PO DAILY #30 cap No Action Meloxicam [Mobic] 15 mg PO DAILY Losartan/Hydrochlorothiazide [Losartan-Hctz 100-25 mg Tab] 1 tab PO DAILY Ascorbic Acid [Vitamin C] 500 mg PO DAILY amLODIPine [Norvasc] 10 mg PO HS Aspirin 81 mg PO DAILY Alendronate Sodium [Fosamax] 70 mg PO APARICIO Potassium(Unknown Dose) 1 tab PO DAILY PRN PRN Reason: only if takes lasix Magnesium 200 mg PO DAILY Cholecalciferol [Vitamin D3 (25 Mcg = 1000 Iu)] 25 mcg PO DAILY Omeprazole [PriLOSEC] 20 mg PO AC-BRKFST Levothyroxine Sodium [Synthroid] 88 mcg PO DAILY Furosemide [Lasix] 20 mg PO DAILY PRN PRN Reason: Edema Atorvastatin [Lipitor] 40 mg PO HS Albuterol Inhaler [Ventolin Hfa Inhaler] 1 - 2 puff INHALATION Q6H PRN PRN Reason: Shortness Of Breath Fish Oil/Dha/Epa [Fish Oil 1,200 mg Fish Oil] 1 each PO DAILY Discharge Medication List Albuterol Inhaler [Ventolin Hfa Inhaler] 1 - 2 puff INHALATION Q6H PRN 03/07/24 [History] Alendronate Sodium [Fosamax] 70 mg PO APARICIO 03/07/24 [History] Ascorbic Acid [Vitamin C] 500 mg PO DAILY 03/07/24 [History] Aspirin 81 mg PO DAILY 03/07/24 [History] Atorvastatin [Lipitor] 40 mg PO HS 03/07/24 [History] Cholecalciferol [Vitamin D3 (25 Mcg = 1000 Iu)] 25 mcg PO DAILY 03/07/24 [History] Fish Oil/Dha/Epa [Fish Oil 1,200 mg Fish Oil] 1 each PO DAILY 03/07/24 [History] Furosemide [Lasix] 20 mg PO DAILY PRN 03/07/24 [History] Levothyroxine Sodium [Synthroid] 88 mcg PO DAILY 03/07/24 [History] Losartan/Hydrochlorothiazide [Losartan-Hctz 100-25 mg Tab] 1 tab PO DAILY 03/07/24 [History] Magnesium 200 mg PO DAILY 03/07/24 [History] Meloxicam [Mobic] 15 mg PO DAILY 03/07/24 [History] Omeprazole [PriLOSEC] 20 mg PO AC-BRKFST 03/07/24 [History] Potassium(Unknown Dose) 1 tab PO DAILY PRN 03/07/24 [History] amLODIPine [Norvasc] 10 mg PO HS 03/07/24 [History] Aspirin 81 mg PO BID #60 tab 03/10/24 [Rx] Diclofenac Sodium [Voltaren] 75 mg PO BID #60 tab 03/10/24 [Rx] Docusate [Colace] 100 mg PO BID #28 capsule 03/10/24 [Rx] HYDROcodone/APAP 5-325MG [[place] 5-325] 1 - 2 tab PO Q6HR PRN #32 tab 03/10/24 [Rx] Omeprazole 40 mg PO DAILY #30 cap 03/10/24 [Rx] Follow up Appointment(s)/Referral(s): Joe Pedersen MD [Medical Doctor] - 2 Weeks Activity/Diet/Wound Care/Special Instructions: 1. Weight-bear as tolerated on your operative extremity unless instructed otherwise. Use a walker or other assistive device to ambulate. 2. Leave surgical dressing in place. If your dressing becomes saturated with blood, there is drainage, or the dressing becomes loose please contact the office. 3. It is okay to shower with your surgical dressing, but do not submerge in water (no hot tubs, bath's, swimming etc.) 4. Make sure to take her blood clot prevention medication as prescribed (aspirin, Eliquis, Xarelto, and Plavix are commonly prescribed medications for blood clot prevention) 5. While taking [place] or Percocet for pain make sure you're taking a stool softener (Colace) and drink lots of water. 6. Keep all follow-up appointments as scheduled. You will usually be seen in 1-2 weeks following surgery. 7. Please contact the office with any questions or concerns [phone] Discharge Disposition: HOME WITH HOME HEALTH SERVICES
[2024-03-11 08:45] VITALS: BP 148/64; PULSE 69; RESP 17; TEMP 98.8
[2024-03-11 09:29] LABS: HGB 11.4 g/dL (12.0-15.0); MCH 30.6 pg (27.0-32.0); MCHC 33.5 g/dL (32.0-37.0); MCV 91.2 FL (80.0-97.0); Mean Platelet Volume 9.8 FL (9.5-12.2); NRBC Per 100 WBC 0 X 10*3/uL (0.00-0.01); Platelet Count 240 X 10*3/uL (140-440); RBC 3.73 X 10*6/uL (4.10-5.20); WBC 18.94 X 10*3/uL (4.50-10.00)
[2024-03-11 09:52] LABS: BUN/Creat Ratio 20.67 Ratio (12.00-20.00); Blood Urea Nitrogen 18.6 mg/dL (9.0-27.0); Calcium 8.9 mg/dL (8.7-10.3); Carbon Dioxide 23.4 mmol/L (21.6-31.8); Chloride 98 mmol/L (96-109); Glucose 111 mg/dL (70-110); Potassium 3.2 mmol/L (3.5-5.5); Sodium 136 mmol/L (135-145)
[2024-03-11 10:05] LABS: Basophils # (A) 0.02 X 10*3/uL (0.00-0.10); Basophils % (A) 0.1 %; Eosinophils # (A) 0 X 10*3/uL (0.04-0.35); Eosinophils % (A) 0 %; Lymphocytes # (A) 1.37 X 10*3/uL (0.90-5.00); Lymphocytes % (A) 7.2 %; Monocytes # (A) 1.57 X 10*3/uL (0.20-1.00); Monocytes % (A) 8.3 %; Neutrophils # (A) 15.86 X 10*3/uL (1.80-7.70); Neutrophils % (A) 83.8 %
[2024-03-11] MEDS: MULTIVITAMINS, THERA 1 EACH TAB PO SCH (11:18)
[2024-03-12] MEDS ORDERED: Alendronate Sodium [Fosamax] 70 MG Tablet PO SCH (06:30)
== END 2024-03-11 11:31 | disposition home health service (06) ==
LOC: OR 05:38 → 4SSUR 10:45 → OR 03-11 11:31
PROVIDERS: ATTEND Orthopaedic Surgery
DX: M17.11 Unilateral primary osteoarthritis, right knee (principal); G89.18 Other acute postprocedural pain; M25.761 Osteophyte, right knee; I10 Essential (primary) hypertension; E78.5 Hyperlipidemia, unspecified; E03.9 Hypothyroidism, unspecified; J45.909 Unspecified asthma, uncomplicated; K21.9 Gastro-esophageal reflux disease without esophagitis; E07.9 Disorder of thyroid, unspecified; Z90.710 Acquired absence of both cervix and uterus; Z90.89 Acquired absence of other organs; Z79.82 Long term (current) use of aspirin; Z79.899 Other long term (current) drug therapy
CPT/HCPCS: 0055T; 27447; 64447; 64999; 80048; 85025; 94760

== ENCOUNTER → 2024-12-19 | Outpatient (CLI) | payer MEDICARE ==
--- NOTE | 2024-12-19 15:37 | MM ---
Reason for Exam: Screening (asymptomatic). Last mammogram was performed 1 year(s) and 4 month(s) ago. Patient History: Menarche at age 12. First Full-Term at age 19. Left ovary removed at age 52. Right ovary removed at age 52. Hysterectomy at age 52. Postmenopausal. Patient used Estrogen for 1 year. Risk Values: [place] 5 year model risk: 1.3%. NCI Lifetime model risk: 3.0%. Prior Study Comparison: 01/15/2021 Bilateral Screening Mammogram, [facility]. 06/10/2022 Bilateral MG 3D screening mammo w/cad, [facility]. 08/16/2023 Bilateral MG 3D screening mammo w/cad, [facility]. Tissue Density: There are scattered areas of fibroglandular density. Findings: Analyzed By CAD. Subareolar asymmetric density left cc view appears new from prior exam but shows no correlate on the MLO view. This may represent superimposition shadow but further evaluation is recommended. Benign bilateral vascular calcifications. Otherwise, no significant change. Overall Assessment: Incomplete: need additional imaging evaluation, BI-RAD 0 Management: Special View Mammogram of the left breast. Diagnostic Breast Ultrasound of the left breast. [facility] will attempt to contact patient to return for supplemental views and ultrasound if indicated. [facility], , 12/19/2024 3:35 PM. Electronically signed and approved by: Joan Handy M.D. Radiologist
== END | disposition home or self-care (01) ==
LOC: RADMAMWWP 14:26
PROVIDERS: ATTEND Family Medicine
DX: Z12.31 Encounter for screening mammogram for malignant neoplasm of breast (principal); R92.323 Mammographic fibroglandular density, bilateral breasts; Z90.722 Acquired absence of ovaries, bilateral; Z78.0 Asymptomatic menopausal state
CPT/HCPCS: 77063; 77067